=== PATIENT | female | born 1990 | race Caucasian/White ===

== ENCOUNTER 2021-11-17 03:03 | Emergency (ER) | payer BC, SELFPAY ==
[~2021-11-17] VITALS: Ht 167.6 cm; Wt 99.8 kg
[2021-11-17 04:06] VITALS: BP_SYST 130
--- NOTE | 2021-11-17 04:06 | NUR ---
Patient is a 31 year old female with no significant history that presents to the ED because of abdominal cramping, N/V/D after eating beans, cheese burrito, chicken soft tacos and drank strawberry milk shake from [employer] last night around 2100 hrs. Sister is a sick contact. Symptoms getting worse. Reports several episodes of nausea/vomiting X5, diarrhea X7 without hematemesis or melena. Patient afebrile, no chest pain, no headache. Patient breathing easy, resp even unlabored. Patient ambulates with steady gait.
--- NOTE | 2021-11-17 04:10 | NUR ---
ER in triage examining patient.
[2021-11-17] MEDS ORDERED: ONDANSETRON HCL 4 MG/2 ML VIAL IVP ONE (04:15)
[2021-11-17] MEDS ORDERED: ACETAMINOPHEN 500 MG TABLET PO ONE (04:15)
[2021-11-17] MEDS ORDERED: NACL 0.9% 1,000 ML IV ONE (04:15)
[2021-11-17] MEDS ORDERED: PROCHLORPERAZINE EDISYLATE 10 MG/2 ML VIAL IVP ONE (04:30)
[2021-11-17 04:59] LABS: BASOPHILS % (AUTO) 0.1 % (0.0-2.0); HEMOGLOBIN 16.1 g/dL (12.0-16.0); LYMPHOCYTES # (AUTO) 0.3 K/uL (1.0-5.5); LYMPHOCYTES % (AUTO) 2.6 % (20.5-51.5); MEAN CORPUSCULAR HEMOGLOBIN 28 pg (27-31); MEAN CORPUSCULAR HGB CONC 34 % (32-36); MEAN CORPUSCULAR VOLUME 82 fL (79.0-98.0); MONOCYTES # (AUTO) 0.2 K/uL (0.0-1.0); MONOCYTES % (AUTO) 1.4 % (1.7-9.3); NEUTROPHILS # (AUTO) 11.3 K/uL (1.8-7.7); NEUTROPHILS % (AUTO) 95.9 % (40.0-70.0); PLATELET COUNT (AUTO) 201 K/uL (130-430); RED BLOOD CELL COUNT(AUTO) 5.71 MIL/uL (4.2-6.2); WHITE BLOOD COUNT (AUTO) 11.8 K/uL (4.8-10.8)
[2021-11-17 05:12] LABS: CALCIUM 8.9 mg/dL (8.4-11.0); CREATININE 0.97 mg/dL (0.55-1.30); POTASSIUM 4.4 mmol/L (3.5-5.1)
[2021-11-17] MEDS ORDERED: ONDA-8 TL (05:17)
[2021-11-17 05:25] LABS: ALBUMIN 4.1 g/dL (3.4-4.8); TOTAL BILIRUBIN 0.5 mg/dL (0.0-1.0)
--- NOTE | 2021-11-17 05:40 | NUR ---
Patient states she is feeling a lot better
[2021-11-17 05:59] VITALS: BP_SYST 128
--- NOTE | 2021-11-17 05:59 | NUR ---
Patient given written and verbal discharge instructions and verbalizes understanding. ER MD discussed with patient the results and treatment provided. Patient in stable condition. ID arm band removed. IV catheter removed intact and dressing applied, no active bleeding. Rx of zofran 4 mg ODT given. Patient educated on pain management and to follow up with PMD. Pain Scale 3/10. Opportunity for questions provided and answered.
== END 2021-11-17 05:59 | disposition home or self-care (01) ==
LOC: SED 03:03
DX: R11.2 Nausea with vomiting, unspecified (principal); R19.7 Diarrhea, unspecified; Z79.899 Other long term (current) drug therapy
CPT/HCPCS: 36415; 80053; 83690; 84702; 85025; 96361; 96374; 96375; 99284; J0780; J2405; J7030